=== PATIENT | female | born 1980 | race Caucasian/White ===

== ENCOUNTER 2024-03-10 10:32 | Outpatient (OUT) | payer OTHER, SELFPAY | END 2024-03-10 10:33 | disposition home or self-care (01) | PROVIDERS: PCP Student in an Organized Health Care Education/Training Program; Visit Provider Obstetrics & Gynecology | DX: R30.9 Painful micturition, unspecified (principal); R39.15 Urgency of urination | CPT/HCPCS: 36415; 87086; 87150; 87186 ==